=== PATIENT | female | born 1945 | race Caucasian/White ===

== ENCOUNTER 2018-09-25 13:31 | Emergency (ER) | payer OTHER ==
--- NOTE | 2018-09-25 13:40 | EDPHY ---
General - History Smoking Status: Never smoked Time Seen by Provider: 09/25/18 13:40 Narrative: CLINICAL IMPRESSION: Tick Bite, erythema migrans ASSESSMENT/PLAN: Patient is a 72 year old female who presents with complaints of tick bite with rash. She is afebrile and not toxic appearing, no acute distress. Her neurological exam is grossly normal with no focal deficit. Physical exam reveals a 4 cm raised lesion around tick bite consistent with erythema migrans. She had no other physical complaints. There were no findings to suggest systemic infection, abscess, necrotizing skin infection, drug reaction, SJS/TENS , varicella virus, erythema infectiosum, viral exanthem, or meningitis. With isolated target lesion and no other complaints, no findings to suggest multiple lesions, neurological deficit or disseminated process. She was given first dose of doxycycline and will continue as an outpatient. She is visiting from [place] and will return to the ED for development of other symptoms or worsening rash, otherwise follow-up with PCP upon return home. Return precautions discussed. ED COURSE: CHIEF COMPLAINT: Tick Bite, "target lesion" HPI: Patient is a 72 year old female with no significant medical history who presents to the ED after finding a tick on her the day prior, now with a " target lesion" at the site. Patient lives in [facility] in [place], large tick burden area. She is very cautious and can typically feel when a tick is on her. [place] a tick on her yesterday and thought she was able to remove it before she was bitten. Noticed a red round lesion around the bite that is enlarging and became concerned, here for further evaluation. She denies any other physical complaints including fever, myalgias , JAMISON, decreased sensation, weakness, CP, SOB, N/V/D, difficulty walking, ataxia or other rash. ROS: Otherwise negative, please see HPI. PHYSICAL EXAM: General Appearance: Well-developed, well-appearing and in no acute distress. Respiratory: There are no retractions, lungs are clear to auscultation. Cardiac: Regular rate and rhythm, no murmurs or gallops. Gastrointestinal: Abdomen is soft, nontender, bowel sounds normal, no masses/ hernia, no rigidity, guarding or focal peritoneal findings. Skin: Right back with slightly raised 4 cm circular lesion around notable bite with fail surrounding erythema consistent with erythema migrans. Area marked. No other rash or lesions noted. Warm, dry. Neuro: Alert and oriented x3, Cranial nerves 2-12 grossly intact. No focal deficit. Normal strength and sensation, normal gait without ataxia. Psych: Normal mood, normal affect. No agitation. MEDICAL DECISION MAKING: Patient was seen independently. Secondary supervising physician at time of evaluation was Dr. Byers, he did not evaluate this patient. Diagnosis: Tick bite, erythema migrans. Summary: See Assessment and Plan for summary of ED visit Decision to obtain medical records or history from someone other than the patient: No Review / Summarize previous medical records: Yes Discussed patient with another provider: Yes, Dr. Byers Patient Progress: Stable, discharge. (Cordelia Castillo) Medical Decision Making: PHYSICIAN DOCUMENTATION: The patient was evaluated and managed by the Physician Lockstitcher. My co- signature indicates that I have reviewed this chart and I agree with the findings and plan of care as documented. I am the secondary supervising physician. (Maulik Byers) - Objective Vital Signs: Initial Vital Signs Temperature (C) 36.8 C 09/25/18 13:34 Heart Rate 52 L 09/25/18 13:34 Respiratory Rate 16 09/25/18 13:34 Blood Pressure 142/59 H 09/25/18 13:34 O2 Sat (%) 95 09/25/18 13:34 O2 Delivery Mode Room Air Allergies/Adverse Reactions: Sulfa (Sulfonamide Antibiotics) Allergy (Verified 09/25/18 13:33) Home Medications: Medication Instructions Recorded Doxycycline Hyclate 100 mg PO BID #14 tab 09/25/18 Medications Given: Discontinued Medications Doxycycline Hyclate (Doxycycline Hyclate) 100 mg PO EDNOW ONE PRN Reason: Protocol Stop: 09/25/18 14:24 Last Admin: 09/25/18 14:43 Dose: 100 mg Departure - Departure Disposition: Home, Routine, Self-Care Clinical Impression: Tic disorder Condition: Good Instructions: Tick Bite (ED) Additional Instructions: DISCHARGE INSTRUCTIONS FROM YOUR PROVIDER Thank you for visiting our emergency department today. Please keep in mind that discharge from the emergency department does not mean that there is nothing wrong - it simply means that we have not identified an emergency condition that requires further evaluation or treatment in the hospital. You should always plan to follow up with primary care for re-evaluation of your condition in the next 1-2 days. Rest, drink plenty of fluids, healthy foods, all to to help your immune system fight the infection and to help the healing process. Keep the wound area clean. Wear loose clothing. Clean the wound areas with soap and water, at least twice daily, then apply antibiotic ointment and a dressing. Change the dressings at least twice daily and/or when soiled. Apply clean, warm compresses as much as possible. Doxycycline 100 mg twice a day for the next 7 days. Consume yogurt and take over the counter probiotics to help prevent diarrhea from the antibiotics. For pain control: You may take Tylenol, I recommend 500-1000 mg every 6-8 hours as needed. Take with food and a full glass of water. Stop taking if this is upsetting you stomach. Do not exceed 3000 mg in a 24 hr period. You may also take ibuprofen, recommend 400 mg every 6 hr. Take with food and a full glass of water. Stop taking if this upsets your stomach. Do not exceed 2400 mg in a 24 hr period. Continue your regular medications as prescribed. Schedule a follow-up appointment with your primary care physician in the next 24 -48 hours for a wound check to ensure you are healing and don't require further antibiotics or intervention. Return for persistent or recurrent fever, vomiting, inability to tolerate the antibiotic(s) by mouth, redness, swelling, warmth, or streaking around the wound , increased redness outside the marked lines, new lesions, extremity swelling, pain out of proportion to what you would expect for this infection, chest or abdominal pain, vomiting, throat tightness, facial swelling, difficulty breathing or swallowing, sores in the mouth or the eyes, or for any other new, worsening or worrisome symptoms. People present with illnesses and injuries in different ways, and it is always possible that we have missed something. Again, thank you for choosing our emergency department. We hope that you feel better. Referrals: NATALY GIRON [Other] - 1-2 days without fail Prescriptions: Doxycycline Hyclate 100 mg PO BID #14 tab
[2018-09-25] MEDS ORDERED: DOXYCYCLINE HYCLATE 100 MG CAP/TAB PO ONE (14:23)
[2018-09-25 14:50] VITALS: BP 127/69
== END 2018-09-25 14:50 | disposition home or self-care (01) ==
DX: S20.461A Insect bite (nonvenomous) of right back wall of thorax, initial encounter (principal); L03.312 Cellulitis of back [any part except buttock and flank]; W57.XXXA Bitten or stung by nonvenomous insect and other nonvenomous arthropods, initial encounter